=== PATIENT | male | born 1945 | race Caucasian/White ===

== ENCOUNTER 2023-12-31 11:30 | Day surgery (SDC) | payer OTHER ==
[2023-12-30 11:35] LABS: PT Prothrombin Time 11.4 SECONDS (9.5-12.5); PTT, Activated Partial Thromb 33.9 SECONDS (24.3-36.9); Protime INR 1.04
[2023-12-30 11:48] LABS: Anion Gap 7.7 mEq/L (5.0-15.0); Potassium 4.7 mEq/L (3.5-5.1)
[2023-12-30 12:07] LABS: Absolute Eosinophils 0.1 K/uL (0-0.5); Absolute Neutrophil 7.4 K/uL (1.8-8.0); Basophils % 0.4 % (0-1.3); Hematocrit 46.1 % (39.6-49.0); Lymphocytes % 10.4 % (15.3-44.8); MCH 29.4 pg (27.0-35.0); MCHC 32.5 g/dL (32.0-36.0); MCV 90.4 fL (80-100); MPV 8.4 fL (7.6-11.3); Monocytes % 10.8 % (3.3-12.3); Neutrophils % 77.4 % (41.7-73.7); Platelets 341 thou/uL (152-406); Red Cell Distribution Width 16.2 % (12.1-15.2)
--- NOTE | 2023-12-30 13:12 | RAD REPORT ---
EXAM DESCRIPTION: RADChest 2 View12/30/2023 10:43 am CLINICAL HISTORY: PRE OP FOR HEART CATH. Pancreatic cancer. Abnormal chest CT findings COMPARISON: Thorax Wo Con dated 12/14/2023; Abdomen Pelvis W/Wo Contrast dated 11/25/2023 TECHNIQUE: PA and lateral views of the chest. FINDINGS: Peripheral predominant nodular opacities, most notably in the upper lungs. Pattern appears similar to that on the recent chest CT, allowing for differences in technique. No pneumothorax or e ffusion. The cardiomediastinal contours are unremarkable. IMPRESSION: Nodular peripheral opacities, most prominent in the upper lungs. Pattern is nonspecific and not significantly changed since the prior CT.
[2023-12-31] MEDS ORDERED: NA CHLORIDE 0.9% 500 ML ONE (11:49)
[2023-12-31] MEDS ORDERED: LIDOCAINE 1% 20 ML MDV ONE (12:03)
[2023-12-31] MEDS ORDERED: HEPA 1000U/500MLS 2,000 UNIT/1,000 ML BAG IV ONE (12:04)
[2023-12-31] MEDS ORDERED: FENTANYL CITR 100 MCG/2 ML ONE (12:06)
[2023-12-31] MEDS ORDERED: CLOPIDOGREL 75 MG TABLET ONE (12:06)
[2023-12-31] MEDS ORDERED: HEPARIN 10,000 UNIT/10 ML VIAL IV ONE (12:06)
[2023-12-31] MEDS ORDERED: VERAPAMIL HCL 10 MG/4 ML VIAL IV ONE (12:06)
[2023-12-31] MEDS ORDERED: MIDAZOLAM HCL 2 MG/2 ML INJ ONE (12:06)
[2023-12-31] MEDS ORDERED: TICAGRELOR 90 MG TABLET PO ONE (12:06)
[2023-12-31] MEDS ORDERED: HEPARIN 5000 UNIT/ML 1 ML VIAL ONE (12:07)
[2023-12-31] MEDS ORDERED: ASPIRIN 325 MG TAB ONE (12:07)
[2023-12-31] MEDS ORDERED: ATROPINE SULF 1 MG/10 ML SYR IV ONE (12:26)
[2023-12-31 12:37] VITALS: TEMP 97
[2023-12-31] MEDS ORDERED: NALOXONE 0.4 MG/ML VIAL ONE (12:49)
[2023-12-31] MEDS ORDERED: Phenylephrine HCl 10 MG/ML 1 ML VIAL ONE (12:49)
[2023-12-31] MEDS ORDERED: FLUMAZENIL 0.1 MG/ML (5 mL VIAL) IV ONE (12:49)
[2023-12-31 16:05] VITALS: BP 102/69; O2SAT 99
--- NOTE | 2023-12-31 16:53 | EKG ---
Test Date: 2023-12-30 Test Time: 10:41:45 Industrial Insulator: UDAY MEASUREMENT RESULTS: Intervals: Rate: 101 [place]: QRSD: 134 QT: 368 QTc: 477 [place]: P: [place]: QRS: -62 T: 115 INTERPRETIVE STATEMENTS: Atrial fibrillation with rapid ventricular response Right bundle branch block Left anterior fascicular block Bifascicular block T wave abnormality, consider lateral ischemia or digitalis effect Abnormal ECG Compared to ECG 11/03/2023 14:23:38 T-wave abnormality now present Possible ischemia now present Bifascicular block still present Electronically Signed On 12-31-23 16:49:26 CDT by Chapo Jaramillo
--- NOTE | 2023-12-31 16:53 | EKG ---
Test Date: 2023-12-30 Test Time: 10:43:22 Cover Stripper: UDAY MEASUREMENT RESULTS: Intervals: Rate: 101 ND: QRSD: 132 QT: 370 QTc: 479 [place]: P: ND: QRS: -68 T: 96 INTERPRETIVE STATEMENTS: Atrial fibrillation with rapid ventricular response Right bundle branch block Left anterior fascicular block Bifascicular block T wave abnormality, consider lateral ischemia or digitalis effect Abnormal ECG Compared to ECG 11/03/2023 14:23:38 T-wave abnormality now present Possible ischemia now present Bifascicular block still present Electronically Signed On 12-31-23 16:49:25 CDT by Chapo Jaramillo
--- NOTE | 2023-12-31 22:45 | OP ---
Date of Procedure: 12/31/2023 Surgeon: DANILO COMBS Procedures Performed: 1.Selective coronary angiogram. 2.Left heart catheterization. Indication: Grossly abnormal stress test with chest pain. History of smoking. Access: Right radial artery, 6-Ethiopian, closed with TR band. Complications: None. Bleeding: Less than 50 mL. Total Sedation Time: 45 minutes, used fentanyl and Versed. Description Of Procedure: After risks, benefits, alternatives were explained, the patient agreed to procedure and signed informed consent. The patient was brought into cardiac catheterization laborato , prepped and draped in usual sterile fashion. Then, I accessed right radial artery using [employer] c micropuncture kit. Placed a 6-Ethiopian Slender sheath and took a 6-Ethiopian JL3.5 catheter into the ao rtic root, engaged left main, took standard views and then exchanged for 6-Ethiopian 3DRC catheter over the wire across the aortic valve and pullback did not record any significant gradient. Then, the sub selective engagement of the RCA was done. The artery was visible with a well takeoff. This was very high and posterior, and then removed the catheter and the sheath, placed TR band with good hemostasi s. Findings: 1.Left main is normal. 2.LAD: Proximal segment large and normal. Mid segment is normal. Mid to distal, there is mild 20% to 30% stenosis. Diagonal branch is normal. 3.Left circumflex: Proximal 80% stenosis. 4.RCA: It is uromsmzl-yk-oxkby size with mid 30% stenosis. 5.LVEDP is normal at 5 mmHg. Conclusion: Severe left circumflex stenosis and mild coronary artery disease. Otherwise, normal LVE DP. Recommendation: The patient is in need to have a surgery for pancreatic cancer. At this point, I wi ll proceed with the surgery and plan for PCI of the left circumflex at a later time post surgery, try ing not to delay his pancreatic surgery. We will hold off on PCI now and treat him with beta-bennie , high-dose statin, and aspirin. See me in the office next week. SR/MODL Voice ID: [id number] Report ID: [id number]
== END 2023-12-31 14:45 | disposition home or self-care (01) ==
LOC: CCL 11:30
PROVIDERS: ATTEND Internal Medicine Interventional Cardiology
DX: I25.10 Atherosclerotic heart disease of native coronary artery without angina pectoris (principal); I48.0 Paroxysmal atrial fibrillation; I10 Essential (primary) hypertension; I45.2 Bifascicular block; I45.10 Unspecified right bundle-branch block; E78.5 Hyperlipidemia, unspecified; C25.9 Malignant neoplasm of pancreas, unspecified; Z87.891 Personal history of nicotine dependence; Z79.01 Long term (current) use of anticoagulants; Z79.899 Other long term (current) drug therapy
CPT/HCPCS: 93005 ×2; 85025; 80048; 36415; 85610; 85730; 71045; 93458; 76937; C1893; Q9967; J1644; J2001; J2371; J2250; J3010; J7040; 99152; 99153; J0461; J2310

== ENCOUNTER 2024-01-10 07:59 | Day surgery (SDC) | payer OTHER ==
[2024-01-10] MEDS ORDERED: MIDAZOLAM HCL 2 MG/2 ML INJ ONE (08:41)
[2024-01-10] MEDS ORDERED: GLYCOPYRROLATE 0.2 MG/ML SYR ONE (08:41)
[2024-01-10] MEDS ORDERED: FENTANYL CITR 100 MCG/2 ML ONE (08:41)
[2024-01-10] MEDS ORDERED: Ringers Lactate 1,000 ML IV ONE (08:42)
[2024-01-10] MEDS ORDERED: NALOXONE HCL 2 MG/2 ML VIAL ONE (08:42)
[2024-01-10] MEDS: HYDROCODONE/APAP 7.5/325 MG TAB ONE (10:21)
--- NOTE | 2024-01-10 10:55 | RAD REPORT ---
EXAM DESCRIPTION: CT - Muscle/Soft Bx - 01/10/2024 10:05 am CLINICAL HISTORY: OMENTAL CA COMPARISON: No comparisons FINDINGS: Preoperative diagnosis: Pancreatic mass, omental carcinomatosis Post operative diagnosis: Same Conscious Sedation: 45 minutes of conscious sedation was utilized, administering IV fentanyl and mida zolam.. Patient was continuously monitored by nursing staff. Contrast used: NONE Estimated blood loss: less than 5 mL Specimens: 5-6 specimens 18 gauge core biopsy 2 cm. The patient was placed supine on the table and the abdominal area was prepped and draped in the usual sterile fashion. 1% lidocaine was infiltrated into the subcutaneous tissues for local anesthesia. Un billie computed tomographic guidance, a 17 gauge introducer was advanced into the region of omental carc inomatosis in the left anterior abdomen. Subsequently, a 18 gauge, 5 cm long, 20 mm throw core biopsy gun was advanced into the lesion and 5-6 cores were obtained. Postprocedure imaging demonstrated no complications. Samples were given to pathology for analysis. Th e patient tolerated the procedure without immediate complication and transferred to the recovery room in stable condition. 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 All CT scans are performed using dose optimization technique as appropriate and may include automated exposure control or mA/KV adjustment according to patient size.
[2024-01-10 11:40] VITALS: BP 126/82; TEMP 97.3; O2SAT 100; BMI 20.7
== END 2024-01-10 11:02 | disposition home or self-care (01) ==
LOC: DS 07:59
PROVIDERS: ATTEND Internal Medicine
PROC: 0W9G3ZX Drainage of Peritoneal Cavity, Percutaneous Approach, Diagnostic (ICD-10-PCS; principal; 2024-01-10)
DX: R19.00 Intra-abdominal and pelvic swelling, mass and lump, unspecified site (principal); C25.1 Malignant neoplasm of body of pancreas; I48.19 Other persistent atrial fibrillation; R63.4 Abnormal weight loss
CPT/HCPCS: 88305; 20206; 49180; 77012; J2250; J3010; J7120; J2310

== ENCOUNTER 2024-01-22 19:01 | Inpatient (IN) | payer OTHER ==
[2024-01-22] MEDS ORDERED: NA CHLORIDE 0.9% 1,000 ML ONE ×2 (19:51→20:59)
[2024-01-22] MEDS ORDERED: ALBUTEROL 2.5 MG/3 ML NEB SOL ONE (19:53)
[2024-01-22] MEDS ORDERED: IPRATROPIUM BROM 0.5MG/2.5ML ONE (19:53)
[2024-01-22 20:21] LABS: Absolute Lymphocytes (CBC) 1.3 K/uL (0.7-4.9); Absolute Monocytes 1.7 K/uL (0.1-1.3); Absolute Neutrophil 14.4 K/uL (1.8-8.0); Basophils % 0.1 % (0-1.3); Eosinophils % 0.1 % (0-4.4); Hematocrit 43.3 % (39.6-49.0); Hemoglobin 14.1 g/dL (13.6-17.9); Lymphocytes % 7.4 % (15.3-44.8); MCH 29.5 pg (27.0-35.0); MCHC 32.7 g/dL (32.0-36.0); MCV 90.4 fL (80-100); MPV 8.2 fL (7.6-11.3); Monocytes % 9.9 % (3.3-12.3); Neutrophils % 82.5 % (41.7-73.7); Platelets 270 thou/uL (152-406); RBC Red Blood Cell Count 4.79 M/uL (4.33-5.43); Red Cell Distribution Width 15.8 % (12.1-15.2)
[2024-01-22 20:34] LABS: PT Prothrombin Time 13.2 SECONDS (9.4-12.5); Protime INR 1.21
[2024-01-22 20:45] LABS: Anion Gap 15.6 mEq/L (5.0-15.0); Potassium 4.6 mEq/L (3.5-5.1)
[2024-01-22] MEDS ORDERED: CEFTRIAXONE 1000 MG/VIAL ONE (20:58)
[2024-01-22] MEDS ORDERED: AZITHROMYCIN 500 MG INJ IVPB ONE (20:58)
[2024-01-22] MEDS ORDERED: NA CHLORIDE 0.9% 50 ML ONE (20:59)
[2024-01-22] MEDS ORDERED: NA CHLORIDE 0.9% 250 ML ONE (20:59)
--- NOTE | 2024-01-22 21:06 | RAD REPORT ---
EXAM DES[facility] 7:55 pm CLINICAL HISTORY: COUGH COMPARISON: Chest Single View dated 12/30/2023; Thorax Wo Con dated 12/14/2023 TECHNIQUE: Portable AP view of the chest. FINDINGS: Chronic interstitial changes. Upper lobe predominant nodular opacities, stable to mildly p rogressive since the prior exam. No pneumothorax or effusion. The cardiomediastinal contours are unr emarkable. IMPRESSION: Stable to mildly progressive upper lobe predominant nodularity, which may reflect an inf ectious/ inflammatory, or neoplastic process.
--- NOTE | 2024-01-22 21:19 | ER ---
Nurse's Notes [facility] Name: Tonio Arvizu Age: 78 yrs Sex: Male : 1945 Arrival Date: 01/22/2024 Time: 19:01 Bed 2 Private MD: Diagnosis: Other pulmonary embolism without acute cor pulmonale;Sepsis, unspecified organism;Cardiac arrest, cause unspecified;Acute respiratory failure with hypoxia Presentation: 01/21 19:11 Chief complaint: Patient states: Weakness, does not want any "invasive" "no needles" [facility] treatment. EMS states: Syncopal episode, weakness for a while. Going thru testing for determination of cancer type. Had paracentesis done yesterday. 19:11 Coronavirus screen: Vaccine status: Patient reports being unvaccinated. Ebola Screen: nj Patient denies travel to an Ebola-affected area in the 21 days before illness onset. Initial Sepsis Screen: Does the patient meet any 2 criteria? No. Patient's initial sepsis screen is negative. Does the patient have a suspected source of infection? No. Patient's initial sepsis screen is negative. Risk Assessment: Do you want to hurt yourself or someone else? Patient reports no desire to harm self or others. Onset of symptoms was 2023. 19:11 Method Of Arrival: EMS: [facility] 19:11 Acuity: JARAD 3 nj1 Historical: - Allergies: 19:37 No Known Allergies; nj1 - Immunization history:: Client reports having NOT received the Covid vaccine. - Infectious Disease History:: Denies. - Social history:: Smoking status: Patient denies any tobacco usage or history of. Screenin:40 [facility] ED Fall Risk Assessment (Adult) History of falling in the last 3 months, [facility] including since admission Yes- fall prone (multiple falls) (3 pts) Confusion or Disorientation No (0 pts) Intoxicated or Sedated No (0 pts) Impaired Gait Yes (1 pt) Mobility Assist Device Used Yes (1 pt) Altered Elimination Yes (1 pt) Score/Fall Risk Level 3 or more points = High Risk Oriented to surroundings, Maintained a safe environment, Hourly rounding (assess needs \\T\\ fall precautionary measures) done. Abuse screen: Denies threats or abuse. Denies injuries from another. Nutritional screening: No deficits noted. Tuberculosis screening: No symptoms or risk factors identified. Assessment: 19:15 Reassessment: Mrs Cano [phone], patients friend. nj1 19:38 General: Appears in no apparent distress. comfortable, malnourished, Behavior is calm, nj1 cooperative, appropriate for age. Neuro: Level of Consciousness is awake, alert, obeys commands, Oriented to person, place, time, situation. Neuro: Reports a syncopal episode weakness. Cardiovascular: Patient's skin is warm and dry. Respiratory: Airway is patent Respiratory effort is even, unlabored. 19:42 Reassessment: Pt. going to CT notified technician terminal and repeater of feeling weak. became unresponsive. ha1 pt. was immediately put into a room. compressions started by nurse in the hallway compressions continued for 15 seconds. primary nurse (Rupinder) came around the corner and informed Dr. Lucero patient was DNR. DNR paper work with patients chart Dr. lucero, Niki, RN, Rupinder,RN, Jo,RN, Regina,RN, Alina,RN, Geovani Tech, and this nurse in the room. 19:42 Neuro: Level of Consciousness is unresponsive. Respiratory: Respiratory effort is with ha1 retractions, Respiratory pattern is agonal. 19:50 Respiratory: Airway is patent Respiratory effort is labored, Respiratory pattern is ha1 apnea tachypnea. 19:55 General: Appears ill, unkempt, malnourished. Pain: Denies pain. Neuro: Level of ha1 Consciousness is awake, Oriented to person, place, time, situation, Reports weakness. Respiratory: Airway is patent Respiratory effort is gasping, with retractions, weak, Respiratory pattern is agonal. GI: No signs and/or symptoms were reported involving the gastrointestinal system. Abdomen is round distended. : No signs and/or symptoms were reported regarding the genitourinary system. Derm: Skin is pale. 20:15 Reassessment: provided education on low oxygen levels and need to use Bi pad. Pt. ha1 agreed to use Bipad. RT and Dr. Lucero was notified. 20:30 Reassessment: RT in the room. ha1 20:30 Respiratory: Airway is patent Respiratory effort is even, Respiratory pattern is ha1 regular, Patient placed on BiPAP: FiO2%: 80. 20:30 Reassessment: Patient and/or family updated on plan of care and expected duration. Pain ha1 level reassessed. 21:30 Reassessment: Patient and/or family updated on plan of care and expected duration. Pain ha1 level reassessed. 21:30 Respiratory: Airway is patent Respiratory effort is even, Respiratory pattern is ha1 tachypnea. 22:15 Reassessment: Patient and/or family updated on plan of care and expected duration. Pain ha1 level reassessed. Patient denies pain at this time. Patient states feeling better. Patient states symptoms have improved. 23:40 Reassessment: Pt. back in the room. pt. refused second IV. provided education on the ha1 need for second IV. I explain the need to use Vasopressors. pt. stated "I have the right to refused it, I am just ready for this night to be over." Notified Dr. Lucero. 23:40 General: Appears uncomfortable, Behavior is anxious. Pain: Denies pain. Neuro: Level of ha1 Consciousness is awake, alert, obeys commands, Oriented to person, place, time, situation. Respiratory: Airway is patent Respiratory effort is labored, Respiratory pattern is tachypnea Patient placed on BiPAP: FiO2%: 80. 01/22 00:40 Reassessment: attempted to give report. ha1 01:25 Reassessment: Patient and/or family updated on plan of care and expected duration. Pain ha1 level reassessed. Respiratory: Airway is patent Respiratory effort is even, Respiratory pattern is tachypnea. 01:25 Reassessment: EMS in the room. ha1 01:33 Reassessment: report given to receiving nurse Rukhsana RN. ha1 Vital Signs: 01/21 19:11 BP 104 / 71; Pulse 89; Resp 18; Temp 97.1(TE); Pulse Ox 94% on R/A; Weight 68.04 kg nj1 (R); Height 5 ft. 9 in. ; 19:44 BP 50 / 22; Pulse 110; Resp 4 S; Pulse Ox 78% on 5 lpm NC; ha1 20:00 BP 90 / 71; Pulse 114; Resp 16 S; Pulse Ox 87% on Nebulizer Mask; ha1 20:45 BP 79 / 56; Pulse 125; Resp 21 S; Pulse Ox 92% on BiPAP; FiO2 80 %; ha1 21:15 BP 92 / 73; Pulse 117; Resp 22 S; Pulse Ox 94% on BiPAP; FiO2 80 %; ha1 21:53 BP 87 / 77; Pulse 94; Resp 24 S; Pulse Ox 94% on BiPAP; FiO2 80 %; ha1 22:15 BP 92 / 78; Pulse 100; Resp 22 S; Pulse Ox 94% on BiPAP; FiO2 80 %; ha1 23:40 BP 95 / 72; Pulse 111; Resp 19 S; Pulse Ox 94% on BiPAP; FiO2 80 %; ha1 01/22 00:30 BP 94 / 64; Pulse 105; Resp 14; Pulse Ox 92% on BiPAP; FiO2 80 %; ha1 01:00 BP 95 / 63; Pulse 103; Resp 24 S; Pulse Ox 93% on BiPAP; FiO2 80 %; ha1 01/21 19:11 Body Mass Index 22.15 (68.04 kg, 175.26 cm) [facility] ED Course: 01/21 19:08 Patient arrived in ED. ec2 19:08 Charles Lucero MD is Attending Physician. ec2 19:23 Rupinder Adams, RN is Primary Nurse. nj1 19:30 Patient has correct armband on for positive identification. Bed in low position. Call nj1 light in reach. Side rails up X 1. 19:30 Provided Education on: call light, fall precautions. nj1 19:37 Triage completed. nj1 19:38 Arm band placed on. nj1 19:[address] nj1 19:46 EKG done, by phlebotomy technician. reviewed by Charles Lucero MD. ha1 19:49 Inserted saline lock: 20 gauge in right antecubital area, using aseptic technique. ha1 Blood collected. 19:56 CXR XRAY In Process Unspecified. EDMS 20:00 Report received from ERIKA Bucio. ha1 20:06 Lorna Oliva, ERIKA is Primary Nurse. ha1 20:09 Initial lab(s) drawn, sent to lab. ha1 20:52 Blood Culture Adult (2) Sent. ha1 21:18 Alonzo Rodrigues MD is Hospitalizing Provider. ec2 22:20 No provider procedures requiring assistance completed. ha1 22:20 Patient admitted, IV remains in place. ha1 23:20 Primary Nurse role handed off by Lorna Oliva, ERIKA vc1 23:21 Niki Kasper RN is Primary Nurse. vc1 23:40 Report received from ERIKA Dodd. ha1 01/22 01:35 No provider procedures requiring assistance completed. ha1 06:14 initiated contact with [facility] \\T\\[id number], spoke with mercedes. Pt was accepted to [facility] \\T\\[id number]. km f Accepting eric moreno a accepted pt \\T\\[id number]. pt will go to CCU bed 12 \\T\\ [facility]. number for nurse to nurse report [phone]. [facility] to transfer the pt. Administered Medications: 01/21 19:57 Drug: NS 0.9% IV 1000 ml IV at 1 bolus Per protocol; 1000 mL bolus Route: IV; Rate: 1 ha1 bolus; Site: right antecubital; 21:15 Follow up: Response: No adverse reaction; IV Status: Completed infusion; IV Intake: ha1 1000ml 19:59 Drug: DuoNeb Nebulize (3:1) (2.5 mg - 0.5 mg) 3 ml Nebulizer once Route: Nebulizer; ha1 20:30 Follow up: Response: No adverse reaction; Marked relief of symptoms ha1 20:50 Drug: NS 0.9% IV 1000 ml IV at 1 bolus Per protocol; 1000 mL bolus Route: IV; Rate: 1 ha1 bolus; Site: right antecubital; 22:15 Follow up: Response: No adverse reaction; IV Status: Completed infusion; IV Intake: ha1 1000ml 20:55 Drug: Rocephin IV 1 grams IV at calculated rate once; Given slow IV push per pharmacy ha1 instructions Route: IV; Rate: calculated rate; Site: right antecubital; 21:15 Follow up: Response: No adverse reaction; IV Status: Completed infusion; IV Intake: [id number] 21:18 Drug: AZITHromycin IVPB 500 mg IVPB once over 1 hrs; (mix in 250 mL NS) Route: IVPB; ha1 Infused Over: 1 hrs; Site: right antecubital; 22:15 Follow up: Response: No adverse reaction; IV Status: Completed infusion; IV Intake: ha1 250ml 21:53 Drug: Aspirin PO Chewable Tablet 324 mg PO once; 81 mg tablets x 4 Route: PO; ha1 22:21 Follow up: Response: No adverse reaction ha1 Medication: 22:25 VIS not applicable for this client. ha1 Intake: 21:15 IV: 50ml; Total: 50ml. ha1 21:15 IV: 1000ml; Total: 1050ml. ha1 22:15 IV: 250ml; Total: 1300ml. ha1 22:15 IV: 1000ml; Total: 2300ml. ha1 Outcome: 21:19 Decision to Hospitalize by Provider. ec2 22:25 Admitted to Med/surg accompanied by nurse, via stretcher, room 208, with oxygen, with ha1 chart, 22:25 Condition: stable 22:25 Instructed on the need for admit, Demonstrated understanding of instructions, 22:39 Patient left the ED. vc1 23:27 ER care complete, transfer ordered by . vc1 01/22 01:35 Transferred by ground EMS to [facility], Transfer form completed. ha1 X-rays sent w/ patient. Condition: stable Instructed on the need for admit, Demonstrated understanding of instructions, 01:36 Patient left the ED. ha1 Signatures: Dispatcher Medst EDNiki Anne RN RN vc1 Lorna Oliva RN RN ha1 Rupinder Adams RN RN njCharles Tyson MD MD 2 Kate Oconnell [facility] Corrections: (The following items were deleted from the chart) 01/21 20:38 19:42 Reassessment: Pt. coming back from CT notified technician terminal and repeater of feeling weak. pt. was ha1 immediately put into a room. Niki Whitman RN, Rupinder,RN, Jo,RN, Regina,RN, Alina,RN, Lola Olivo, and this nurse in the room. ha1 22:04 19:42 Reassessment: Pt. going to CT notified technician terminal and repeater of feeling weak. pt. was ha1 immediately put into a room. Niki Whitman, RN, Rupinder,RN, Jo,RN, Regina,RN, Alina,RN, Lola Olivo, and this nurse in the room. ha1 01/22 00:04 01/21 23:40 Reassessment: Pt. back in the room. pt. refused second IV. informed the ha1 need for second IV. pt. stated " I am just ready for this night to be over." ha1
--- NOTE | 2024-01-22 21:19 | EDPHYS ---
Physician Documentation [facility] Name: Tonio Arvizu Age: 78 yrs Sex: Male : 1945 Arrival Date: 01/22/2024 Time: 19:01 Bed 2 Private MD: ED Physician Charles Lucero HPI: 01/21 19:26 This 78 yrs old Male presents to ER via Unassigned with complaints of ec2 Weakness. 19:26 Patient arrives today for evaluation of generalized weakness. Patient reports that he ec2 felt weak while walking around, states he subsequently sat down and was having difficulty getting up. Denies any trauma, denies hitting his head, denies loss of consciousness. Patient denies any chest pain or difficulty breathing. States he has a history of cancer, unclear which pathology, states that he had recently undergone significant testing yesterday at [facility] in [place] and did not want to obtain repeat blood work and did not want anything invasive.. Historical: - Allergies: 19:37 No Known Allergies; nj1 - Immunization history:: Client reports having NOT received the Covid vaccine. - Infectious Disease History:: Denies. - Social history:: Smoking status: Patient denies any tobacco usage or history of. ROS: 19:26 Constitutional: as per hpi ec2 Exam: 19:26 Constitutional: GEN: NAD Head: atraumatic Eyes: EOMI Ears: External ears are ec2 normal. CV: regular rate LUNGS: no respiratory distress ABD: non-distended SKIN: no evidence of rashes MSK: no evidence of trauma NEURO: moves all extremities equally Vital Signs: 19:11 BP 104 / 71; Pulse 89; Resp 18; Temp 97.1(TE); Pulse Ox 94% on R/A; Weight 68.04 kg nj1 (R); Height 5 ft. 9 in. ; 19:44 BP 50 / 22; Pulse 110; Resp 4 S; Pulse Ox 78% on 5 lpm NC; ha1 20:00 BP 90 / 71; Pulse 114; Resp 16 S; Pulse Ox 87% on Nebulizer Mask; ha1 20:45 BP 79 / 56; Pulse 125; Resp 21 S; Pulse Ox 92% on BiPAP; FiO2 80 %; ha1 21:15 BP 92 / 73; Pulse 117; Resp 22 S; Pulse Ox 94% on BiPAP; FiO2 80 %; ha1 21:53 BP 87 / 77; Pulse 94; Resp 24 S; Pulse Ox 94% on BiPAP; FiO2 80 %; ha1 22:15 BP 92 / 78; Pulse 100; Resp 22 S; Pulse Ox 94% on BiPAP; FiO2 80 %; ha1 23:40 BP 95 / 72; Pulse 111; Resp 19 S; Pulse Ox 94% on BiPAP; FiO2 80 %; ha1 01/22 00:30 BP 94 / 64; Pulse 105; Resp 14; Pulse Ox 92% on BiPAP; FiO2 80 %; ha1 01:00 BP 95 / 63; Pulse 103; Resp 24 S; Pulse Ox 93% on BiPAP; FiO2 80 %; ha1 01/21 19:11 Body Mass Index 22.15 (68.04 kg, 175.26 cm) nj1 MDM: 01/21 19:10 Patient medically screened. ec2 19:26 Data reviewed: vital signs. ED course: Patient arrives today for evaluation of ec2 generalized weakness. Examination remarkable for a nontoxic but was otherwise in no acute distress with a reassuring examination who is hemodynamically appropriate. I discussed obtaining lab work and assessing hydration status, electrolyte disturbances as well as kidney disease however patient stated he did not want additional lab work as he just had lab work yesterday. Ultimately we decided that we would obtain noninvasive measures including urine studies, EKG as well as a chest x-ray and CT scan of the head. Differential diagnosis include processes such as ACS, dehydration, urinary tract infection, electrolyte disturbances.. 19:54 ED course: I was called to the room due to sonorous respirations and unresponsiveness, ec2 briefly chest impressions were started, patient has DNR paperwork and verbalized to me and nurse Rupinder, prior to episode that he did not want anything invasive, and he confirmed and verbalized that he is a DNR. At that time we had stopped compressions, thready pulse was noted. We placed an IV, give the patient crystalloid, will obtain lab work as well.. 19:59 ED course: EKG independently reviewed and interpreted by me, shows atrial fibrillation, ec2 rate of 124, no acute ST segment elevations, bundle branch block noted.. 20:36 ED course: On reassessment patient now awake, has hypotensive blood pressures however ec2 is interactive. Family updated regarding plan of care, agreeable to DNR/DNI.. 20:52 ED course: Patient awake and alert and answering questions, patient with some shortness ec2 of breath, patient is agreeable to trial BiPAP. Patient remains adamant that he would not want to be intubated and is DNR.. 21:10 ED course: Metabolic profile shows slight hyponatremia, renal dysfunction with a GFR ec2 74, elevated BNP at 2100, troponin elevated at 99, lactate elevated at 5.9. Questionable infectious process on the chest x-ray noted. Ordered for ceftriaxone and azithromycin to cover empirically. Patient does have lactic acidosis, will give additional crystalloid, patient would not be an appropriate candidate for central line placement for vasopressor medications. . 21:15 ED course: Patient with some complaints of shortness of breath, we placed the patient ec2 on BiPAP which she was agreeable to. Patient again does not want to undergo intubation if needed. I discussed case with hospitalist, will admit for pneumonia, respiratory failure, cardiac arrest. Will also add on CT scan of the chest to evaluate for PE, and will admit after PE scan if negative for. 21:19 ED course: MDM: Differential diagnosis as documented above in ED course; All lab tests ec2 ordered and reviewed as documented above; Independent interpretation of tests: EKG as above; History gathered from independent historian: Yes, EMS; Discuss inpatient hospitalization: Yes; I discussed the case with: Hospitalist . 23:29 ED course: Additionally added on CT scan of the chest to eval for PE. Patient with ec2 bilateral PE, right heart strain, will transfer for further management. 01/21 19:21 Order name: UAM ec2 01/21 19:57 Order name: Basic Metabolic Panel; Complete Time: 21:09 ec2 01/21 19:57 Order name: CBC with Diff; Complete Time: 20:39 ec2 01/21 19:57 Order name: NT PRO-BNP; Complete Time: 21:09 ec2 01/21 19:57 Order name: PT-INR; Complete Time: 23:26 ec2 01/21 19:57 Order name: Troponin HS; Complete Time: 21:09 ec2 01/21 20:08 Order name: Lactate w/ 2H reflex if indic.; Complete Time: 21:09 ha1 01/21 20:41 Order name: Blood Culture Adult (2) ec2 01/21 21:33 Order name: CBC with Automated Diff EDMS 01/21 21:33 Order name: CBC with Automated Diff EDMS 01/21 21:33 Order name: Comprehensive Metabolic Panel EDMS 01/21 21:33 Order name: Comprehensive Metabolic Panel EDMS 01/21 23:34 Order name: SARS RAPID kmf 01/22 00:01 Order name: Lactate Sepsis 2 HR Follow-up EDMS 01/21 19:21 Order name: CXR XRAY; Complete Time: 21:09 ec2 01/21 21:34 Order name: Echo with Doppler EDMS 01/21 21:40 Order name: Chest Angio EDMS 01/21 19:21 Order name: EKG - Nurse/Tech; Complete Time: 20:09 ec2 01/21 19:57 Order name: Cardiac monitoring; Complete Time: 20:08 ec2 01/21 19:57 Order name: IV Saline Lock; Complete Time: 20:08 ec2 01/21 19:57 Order name: Labs collected and sent; Complete Time: 20:08 ec2 01/21 19:57 Order name: O2 Per Protocol; Complete Time: 20:08 ec2 01/21 19:57 Order name: O2 Sat Monitoring; Complete Time: 20:08 ec2 01/21 20:41 Order name: Misc. Order: total 2L IVF; Complete Time: 21:22 ec2 Administered Medications: 19:57 Drug: NS 0.9% IV 1000 ml IV at 1 bolus Per protocol; 1000 mL bolus Route: IV; Rate: 1 ha1 bolus; Site: right antecubital; 21:15 Follow up: Response: No adverse reaction; IV Status: Completed infusion; IV Intake: ha1 1000ml 19:59 Drug: DuoNeb Nebulize (3:1) (2.5 mg - 0.5 mg) 3 ml Nebulizer once Route: Nebulizer; ha1 20:30 Follow up: Response: No adverse reaction; Marked relief of symptoms ha1 20:50 Drug: NS 0.9% IV 1000 ml IV at 1 bolus Per protocol; 1000 mL bolus Route: IV; Rate: 1 ha1 bolus; Site: right antecubital; 22:15 Follow up: Response: No adverse reaction; IV Status: Completed infusion; IV Intake: ha1 1000ml 20:55 Drug: Rocephin IV 1 grams IV at calculated rate once; Given slow IV push per pharmacy ha1 instructions Route: IV; Rate: calculated rate; Site: right antecubital; 21:15 Follow up: Response: No adverse reaction; IV Status: Completed infusion; IV Intake: [id number] 21:18 Drug: AZITHromycin IVPB 500 mg IVPB once over 1 hrs; (mix in 250 mL NS) Route: IVPB; ha1 Infused Over: 1 hrs; Site: right antecubital; 22:15 Follow up: Response: No adverse reaction; IV Status: Completed infusion; IV Intake: ha1 250ml 21:53 Drug: Aspirin PO Chewable Tablet 324 mg PO once; 81 mg tablets x 4 Route: PO; ha1 22:21 Follow up: Response: No adverse reaction ha1 Disposition Summary: 01/22/24 23:27 Transfer Ordered Notes: Transfer Location: [facility] vc1 Reason: Higher level of care vc1 Condition: Critical(01/22/24 23:27) vc1 Accepting Physician: transfer pending acceptance(01/23/24 01:36) ha1 Diagnosis - Other pulmonary embolism without acute cor pulmonale vc1 - Sepsis, unspecified organism(01/22/24 23:27) vc1 - Cardiac arrest, cause unspecified(01/22/24 23:27) vc1 - Acute respiratory failure with hypoxia vc1 Forms: - Medication Reconciliation Form vc1 - SBAR form vc1 Critical care time excluding procedures: 21:15 Critical care time: Bedside Care: 30 minutes, Consultation: 5 minutes. Total time: 35 ec2 minutes Signatures: Dispatcher [employer] EDMS Niki Kasper RN RN vc1 Lorna Oliva RN RN ha1 Rupinder Adams RN RN nj1 Charles Lucero MD MD 2 Kate Oconnell [facility] Corrections: (The following items were deleted from the chart) 19:21 19:21 Urinalysis W/Microscopic+U.LAB.BRZ ordered. EDMS EDMS 19:21 19:21 Chest Single View+RAD.RAD.BRZ ordered. EDMS EDMS 19:21 19:21 Head Brain Wo Cont+CT.RAD.BRZ ordered. EDMS EDMS 19:58 19:58 BASIC METABOLIC PANEL+C.LAB.BRZ ordered. EDMS EDMS 19:58 19:58 CBC+H.LAB.BRZ ordered. EDTX EDMS 19:58 19:58 PROBNP+C.LAB.BRZ ordered. [facility] EDMS 19:58 19:58 PROTIME (+INR)+COAG.LAB.BRZ ordered. [facility] EDMS 19:58 19:58 Troponin High Sensitivity+C.LAB.BRZ ordered. [facility] EDTX 19:59 19:54 ED course: I was called to the room due to sonorous respirations and ec2 unresponsiveness, briefly chest impressions were started, patient has DNR paperwork and verbalized to me and nurse Rupinder, prior to episode that he did not want anything invasive, and he confirmed and verbalized that he is a DNR.. ec2 21:40 21:34 Chest For Pe Angio ordered. [facility] EDMS 21:46 21:19 ec2 kmf 23:22 21:19 Inpatient Admission ec2 vc1 23:22 21:19 Alonzo Rodrigues ec2 vc1 23:22 21:19 Telemetry/MedSurg (Inpatient) ec2 vc1 23:22 21:19 Serious ec2 vc1 23:22 21:19 an acute exacerbation ec2 vc1 23:22 21:19 have improved ec2 vc1 23:22 21:19 Standard ec2 vc1 23:22 21:19 Sepsis, unspecified organism ec2 vc1 23:22 21:19 Cardiac arrest, cause unspecified ec2 vc1 23:22 21:19 Acute respiratory failure ec2 vc1 23:22 21:46 208 kmf vc1 23:50 21:15 ED course: Patient with some complaints of shortness of breath, we placed the ec2 patient on BiPAP which she was agreeable to. Patient again does not want to undergo intubation if needed. I discussed case with hospitalist, will admit for pneumonia, respiratory failure, cardiac arrest.. ec2 01/22 00:35 00:34 ED course: On reassessment patient is clinically sober, awake and alert, I had a ec2 more extensive conversation with the patient regarding her jaundice and known liver disease, states that she follows with [facility], states that she is supposed to have an outpatient liver biopsy to determine the degree of her cirrhosis, states that she has been delaying this as she is afraid of the resolved. I discussed hospitalization and further cares and, states she indicates that she has plans for an appointment on Wednesday to facilitate additional cares, [facility] Will discharge home, states that she is able to call out when to pick her up. Patient is clinically sober and answering questions appropriately.. ec2 01:36 01/21 23:27 transfer pending acceptance vc1 ha1
[2024-01-22] MEDS ORDERED: ONDANSETRON 4 MG/2 ML VIAL IV PRN (21:28)
[2024-01-22] MEDS ORDERED: MORPHINE 4 MG/ML SYR IV PRN (21:28)
--- NOTE | 2024-01-22 21:34 | P.HP ---
Certification for Inpatient With expected LOS: >2 Midnights Practitioner: I am a practitioner with admitting privileges, knowledge of patient current condition, hospital course, and medical plan of care. Services: Services provided to patient in accordance with Admission requirements found in Title 42 Section 412.3 of the Code of Federal Regulations Patient History Date of Service: 01/22/24 Reason for admission: Respiratory failure History of Present Illness: And is 78 years of age diagnosed with pancreatic cancer apparently he was just discharged from [facility] yesterday was there for 6 hours a biopsy was done went home became weak fell passed out. In the emergency room hypoxic and having progressive deterioration for the past 6 months with weight loss Allergies No Known Allergies Allergy (Verified 11/03/23 14:07) Home Medications: Acetaminophen [Acetaminophen Extra Strength] 1 tab PO Q4HR 11/03/23 Hydrocodone 5/APAP 325 [[place] 5/325] 1 tab PO Q8HR 12/30/23 - Past Medical/Surgical History Past Medical History: Reviewed- Non-Contributory -: Recent history of pancreatic cancer as per patient Past Surgical History: Patient denies surgical history - Social History Smoking Status: Never smoker Review of Systems 10-point ROS is otherwise unremarkable General: Weakness Respiratory: Shortness of Breath Physical Examination - Vital Signs Temperature: 97.1 F Blood Pressure: 104/71 Pulse: 89 Respirations: 22 - Physical Exam General: Alert (87), Moderate distress Respiratory: Clear to auscultation bilaterally, Diminished Cardiovascular: No edema, Regular rate/rhythm Gastrointestinal: Normal bowel sounds, Soft and benign Musculoskeletal: Other (Patient has mottled extremities) Integumentary: No rashes, No breakdown - Studies Laboratory Data (last 24 hrs) 01/22/24 01/22/24 01/22/24 20:05 20:05 20:05 WBC 17.40 H Hgb 14.1 Hct 43.3 Plt Count 270 PT 13.2 H INR 1.21 Sodium 132 L Potassium 4.6 BUN 24 H Creatinine 1.04 Glucose 129 H Assessment and Plan - Problems (Diagnosis) (1) Respiratory failure Current Visit: Yes Status: Acute Plan: Patient is 78 years of age recent diagnosis of pancreatic cancer as per patient he was just discharged from a [facility] yesterday became weak and passed out progressive deterioration for the past 6 months in the patient was hypoxic currently on BiPAP does not want to be resuscitated only suspect that he may have had pulmonary embolism started patient on heparin echocardiogram troponins BNP and white count both elevated I discussed with Dr. Raman that the patient needs to be transferred to a tertiary care facility CT angiogram does show a massive PE is high risk for thrombolytic therapy in view of his underlying malignancy patient was admitted to the floor will be transferred back to the emergency room later to be trans ferred to a tertiary care facility in the meantime he may need Levophed patient is currently on heparin inform the patient Qualifiers: Chronicity: acute - Advance Directives Does patient have a Living Will: No Does patient have a Durable POA for Healthcare: No
[2024-01-22 21:48] VITALS: TEMP 97.1
[2024-01-22] MEDS ORDERED: ASPIRIN 81 MG CHEWABLE TABLET ONE (21:49)
[2024-01-22 22:56] VITALS: BMI 22.0
[2024-01-22 22:57] LABS: PTT, Activated Partial Thromb 37.3 SECONDS (24.3-36.9)
[2024-01-22] MEDS: HEPARIN/D5W 25,000 UNIT/500 ML BAG IV SCH (23:02)
[2024-01-22] MEDS: NA CHLORIDE 0.9% 1,000 ML IV SCH (23:07)
[2024-01-23 01:45] VITALS: O2SAT 92
[2024-01-23 02:06] VITALS: BP 94/64
--- NOTE | 2024-01-23 13:28 | EKG ---
Test Date: 2024-01-22 Test Time: 19:55:55 [employer] C[employer] Worker: ELISA MEASUREMENT RESULTS: Intervals: Rate: 124 [place]: QRSD: 148 QT: 350 QTc: 502 [place]: P: [place]: QRS: -61 T: 105 INTERPRETIVE STATEMENTS: Atrial fibrillation with premature ventricular or aberrantly conducted complexes Right bundle branch block Left anterior fascicular block Bifascicular block T wave abnormality, consider lateral ischemia or digitalis effect Abnormal ECG Compared to ECG 12/30/2023 10:43:22 Ventricular premature complex(es) now present Bifascicular block still present T-wave abnormality still present Possible ischemia still present Electronically Signed On 01-23-24 13:27:04 CDT by Chapo Jaramillo
--- NOTE | 2024-01-24 20:25 | RAD REPORT ---
EXAM DESCRIPTION: CT - Chest Angio - 01/23/2024 7:14 am ADDENDUM #1 Critical findings were discussed with and acknowledged by Dr. Rodrigues on 01/22/2024 11:25 PM CDT. Electronically signed by: Alberto Oconnor MD 01/22/2024 11:40 PM CDT RP End of Addendum CLINICAL HISTORY: RO PE COMPARISON: None. TECHNIQUE: CT CHEST ANGIOGRAPHY WITH IV CONTRAST on 01/22/2024 9:38 PM CDT. MIPS reconstructions were generated. This exam was performed according to our departmental dose-optimization program, which includes autom ated exposure control, adjustment of the mA and/or kV according to patient size and/or use of iterati ve reconstruction technique. MIP images were generated. FINDINGS: Thoracic aorta is normal in course and caliber without aneurysm or dissection. There are o verall moderate filling defects within the distal pulmonary arteries extending into the major branche s bilaterally. The heart is normal in size. There is enlargement of the right heart chambers with RV LV ratio of 1.5 . There is no pericardial effusion. Intrathoracic lymph nodes are not enlarged. There are small to moderate bilateral pleural effusions. Central airways are patent. There are cluste red mostly anterior nodular opacities within mostly the upper lobes. These are irregular and range in size from several millimeters up to 1.2 cm. There is minimal involvement of the posterior lower lobe s. In the upper abdomen, there is mild ascites in both quadrants. There are no acute osseous findings. No suspicious bony lesions. IMPRESSION: Moderate bilateral pulmonary emboli with evidence of right heart strain. Bilateral pleural effusions with bilateral mostly upper lobe clustered nodular opacities. This could represent infectious or inflammatory etiology. Malignancy is less likely but not completely excluded. Electronically signed by: Alberto Oconnor MD 01/22/2024 11:16 PM CDT Due to temporary technical issues with the PACS/Fluency reporting system, reports are being signed by the in house radiologists without review as a courtesy to insure prompt reporting. The interpreting radiologist is fully responsible for the content of the report.
--- NOTE | 2024-01-24 22:30 | RAD REPORT ---
EXAM DESCRIPTION: CT - CT ANGIO ABD/PELVIS W CONTRAST - 01/23/2024 7:14 am CLINICAL HISTORY: Hx of pancreatic cancer COMPARISON: None. TECHNIQUE: CT ABDOMEN PELVIS ANGIOGRAPHY WITH IV CONTRAST on 01/22/2024 12:00 AM CDT This exam was performed according to our departmental dose-optimization program, which includes autom ated exposure control, adjustment of the mA and/or kV according to patient size and/or use of iterati ve reconstruction technique. MIP reconstructions were generated. FINDINGS: There is mild to moderate bilateral pleural effusions. Abdomen: The liver is normal in appearance. There is no biliary dilatation. Gallbladder is indistinct . There is overall moderate upper abdominal ascites. There is mild vague fullness of the pancreatic b lisa. Spleen is normal in size. The adrenal glands and kidneys are unremarkable. Abdominal aorta is moderately calcified without aneurysm. Major aortic branches are patent. There is no free air. There is no retroperitoneal adenopathy. Pelvis: There is no bowel obstruction. Urinary bladder is unremarkable. There is small amount of free pelvic fluid. There is a reticular nodular infiltration of the mostly left anterior omentum. Skeleton: There are no acute osseous findings. No suspicious bony lesions. 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 Electronically signed by: Alberto Oconnor MD 01/22/2024 11:20 PM CDT RP Due to temporary technical issues with the PACS/Fluency reporting system, reports are being signed by the in house radiologists without review as a courtesy to insure prompt reporting. The interpreting radiologist is fully responsible for the content of the report.
--- NOTE | 2024-01-24 22:32 | RAD REPORT ---
EXAM DESCRIPTION: CT - Head Brain Wo Cont - 01/23/2024 7:14 am CLINICAL HISTORY: TRAUMA COMPARISON: None. TECHNIQUE: CT HEAD WITHOUT IV CONTRAST on 01/22/2024 7:21 PM CDT This exam was performed according to our departmental dose-optimization program, which includes autom ated exposure control, adjustment of the mA and/or kV according to patient size and/or use of iterati ve reconstruction technique. FINDINGS: There is no acute hemorrhage, mass effect or midline shift. Castaneda-white differentiation is preserved. There is no hydrocephalus. There is no significant volume loss for age. The calvarium is intact. Orbits and globes are unremarkable. The paranasal sinuses are clear. Mastoid air cells are clear. IMPRESSION: No acute intracranial findings. Electronically signed by: Alberto Oconnor MD 01/22/2024 11:22 PM CDT Due to temporary technical issues with the PACS/Fluency reporting system, reports are being signed by the in house radiologists without review as a courtesy to insure prompt reporting. The interpreting radiologist is fully responsible for the content of the report.
== END 2024-01-23 01:36 | disposition short-term general hospital (02) | DRG 175 ==
LOC: ER 19:01 → ERHOLD 21:28 → 2ND 22:18 → ERHOLD 01-23 00:15
PROVIDERS: ADMIT Internal Medicine Sleep Medicine; ATTEND Internal Medicine Sleep Medicine
PROC: 5A09457 Assistance with Respiratory Ventilation, 24-96 Consecutive Hours, Continuous Positive Airway Pressure (ICD-10-PCS; principal; 2024-01-22)
DX: I26.99 Other pulmonary embolism without acute cor pulmonale (principal); I46.9 Cardiac arrest, cause unspecified; J96.01 Acute respiratory failure with hypoxia; R57.9 Shock, unspecified; E87.1 Hypo-osmolality and hyponatremia; E87.20 Acidosis, unspecified; C25.9 Malignant neoplasm of pancreas, unspecified; I48.91 Unspecified atrial fibrillation; Z66 Do not resuscitate; Z28.310 Unvaccinated for COVID-19
CPT/HCPCS: 36415; 70450; 71045; 71275; 74174; 80048; 83605; 83880; 84484; 85025; 85610; 85730; 87040; 93005; 94640; 94660; 96361; 96365; 96367; 99285; J0696; J7030; J7050; J7613; J7644; Q9967